=== PATIENT | male | born 1985 | race Caucasian/White ===

== ENCOUNTER 2021-03-07 17:52 | Emergency (ER) | payer OTHER, SELFPAY ==
--- NOTE | ~2021-03-07 | XR_ITS ---
XR chest 1V portable 03/07/2021 20:29 Indication: Cough and shortness of breath. Covid infection. Procedure: AP portable chest Comparison: No prior studies for comparison. Findings: Patchy bilateral airspace disease, compatible with pneumonia. No pleural effusion or pneumo thorax. No acute osseous abnormality. Impression: 1: Patchy bilateral pneumonia. Reviewed, dictated and finalized at location A. [facility] Impression: 1: Patchy bilateral pneumonia.
[2021-03-07 18:02] VITALS: BP 134/97; PULSE 108; RESP 19; TEMP 37.3; O2SAT 97
[2021-03-07 20:10] VITALS: BP 135/86; PULSE 105; RESP 20; TEMP 37.4; O2SAT 95
[2021-03-07 20:44] LABS: Basophils Percent Auto 0.2 % (0.2-1.2); Hematocrit 45.9 % (42.0-52.0); Hemoglobin 16.4 g/dL (14.0-18.0); Immature Granulocyte Absolute 0.08 K/mm3 (0.00-0.031); Immature Granulocyte Percent A 0.9 % (0-0.5); Lymphocytes Absolute Auto 1.61 K/mm3 (0.9-3.2); Lymphocytes Percent Auto 17.7 % (18.3-44.2); Mean Corpuscular HGB Conc 35.7 g/dl (32-36); Mean Corpuscular Hemoglobin 32.2 pg (26-34); Mean Platelet Volume 10.5 fl (7.4-10.4); Monocytes Absolute Auto 0.8 K/mm3 (0.1-0.6); Monocytes Percent Auto 8.9 % (2.6-8.5); Neutrophils Absolute Auto 6.6 K/mm3 (1.3-6.7); Neutrophils Percent Auto 72.3 % (45.5-73.1); Platelet Count Result 191 k/mm3 (150-375); Red Cell Distribution Width 11.4 % (11.5-14.5); White Blood Count 9.1 K/mm3 (4.5-10.0)
--- NOTE | 2021-03-07 20:57 | ED.GENADULT ---
HPI - General Adult General Chief complaint: Upper Respiratory Infection Stated complaint: Covid + 10 days ago. cough Time Seen by Provider: 03/07/21 20:21 History of Present Illness HPI narrative: 35-year-old male presented to the emergency department for evaluation of worsening Covid symptoms after testing positive greater than 10 days ago. Patient reports persistent cough and congestion. Patient states initially had body aches and felt pretty poor but then began to improve but patient states today he had worsening cough and congestion symptoms. Patient also describes an intense coughing fit after which he had increased chest tightness. Patient is a smoker. Patient denies any underlying lung disease, denies asthma and COPD Related Data Allergies Allergy/AdvReac Type Severity Reaction Status Date / Time No Known Allergies Allergy Verified 03/07/21 18:05 Review of Systems Review of Systems: CONSTITUTIONAL: Denies fever, chills, or sweats. EYES: Denies visual changes, redness, or discharge. ENT: Denies rhinorrhea, congestion, sore throat, or otalgia. CARDIOVASCULAR: Denies chest pain, palpitations, or edema. RESPIRATORY: Denies cough or dyspnea. GASTROINTESTINAL: Denies abdominal pain, nausea, vomiting, or diarrhea. GENITOURINARY: Denies dysuria or hematuria. SKIN: Denies rash or itching. MUSCULOSKELETAL: Denies back pain, joint pain, or myalgia. NEUROLOGIC: Denies headache, numbness, or weakness. PSYCHIATRIC: Denies anxiety or depression. Exam Narrative: APPEARANCE: Well appearing, no pain in distress, well-nourished. Head normocephalic atraumatic. EYES: PERRLA/EOMI, conjunctivae very clear. NOSE: Normal no drainage EARS:TMS clear Bennett Swain, with good light reflex. THROAT: Pharynx clear, no exudate. NECK: Supple. No adenopathy, no masses. RESPIRATORY: Airway patent, respirations nonlabored. Clear to auscultation bilaterally, no rales, rhonchi, wheezing. CARDIOVASCULAR: Regular rate and rhythm without murmurs rubs or gallops. ABDOMINAL: Soft, nontender, nondistended, no hepatosplenomegally MUSCULOSKELETAl: Moves all extremities. Strength/ROM intact, No edema, No calf tenderness. NEURO: Alert. Cranial nerves II through XII intact. Good gait. Good coordination SKIN:: Warm, dry. Normal Color PSYCHIATRIC: Normal affect/mood Course Vital Signs Vital signs: Vital Signs Temperature 99.2 F 03/07/21 18:02 Pulse Rate 108 H 03/07/21 18:02 Respiratory Rate 19 03/07/21 18:02 Blood Pressure 134/97 H 03/07/21 18:02 Pulse Oximetry 97 03/07/21 18:02 Temperature 99.4 F 03/07/21 20:10 Pulse Rate 100 03/07/21 21:19 Respiratory Rate 20 03/07/21 21:19 Blood Pressure 135/86 03/07/21 20:10 Pulse Oximetry 95 03/07/21 20:10 Medical Decision Making MDM Narrative Medical decision making narrative: Patient describes a possible bronchospasm where he had increased chest tightness after having a coughing fit. Patient states in the respirator and he feels like he is breathing easier than he was at home. Patient will be prescribed an albuterol inhaler and also Tessalon Perles to help with cough. Patient was educated on reasons to return to the emergency room. All questions and concerns were addressed. Vital Signs Vital Signs: Vital Signs Temperature 99.2 F 03/07/21 18:02 Pulse Rate 108 H 03/07/21 18:02 Respiratory Rate 19 03/07/21 18:02 Blood Pressure 134/97 H 03/07/21 18:02 Pulse Oximetry 97 03/07/21 18:02 Temperature 99.4 F 03/07/21 20:10 Pulse Rate 100 03/07/21 21:19 Respiratory Rate 20 03/07/21 21:19 Blood Pressure 135/86 03/07/21 20:10 Pulse Oximetry 95 03/07/21 20:10 Lab Data Lab results reviewed: Yes I reviewed the patient's lab results. Result diagrams: 03/07/21 20:39 Labs: Lab Results 03/07/21 Range/Units 20:39 WBC 9.1 (4.5-10.0) K/mm3 RBC 5.10 (4.6-6.20) M/mm3 Hgb 16.4 (14.0-18.0) g/dL Hct 45.9 (42.0-52.0) % MCV 90.0 (8
[2021-03-07] MEDS: ALBUTEROL SULFATE NEB 2.5 MG/0.5 ML INH 5 MG INHALATION (21:12)
[2021-03-07 21:19] VITALS: PULSE 100; RESP 20
[2021-03-07] MEDS: BENZONATATE 100 MG CAPSULE PO (21:30)
== END 2021-03-07 21:35 | disposition home or self-care (01) ==
PROVIDERS: Emergency Medicine; Emergency Provider Emergency Medicine
DX: U07.1 COVID-19 (principal); J12.82 Pneumonia due to coronavirus disease 2019; F17.200 Nicotine dependence, unspecified, uncomplicated
CPT/HCPCS: 36415; 71045; 85025; 94640; 99283; A9270

== ENCOUNTER 2024-01-02 12:58 | Outpatient (CLI) | payer OTHER, SELFPAY ==
[2024-01-02 21:01] LABS: Hemoglobin A1C 5.4 % (<5.7)
== END 2024-01-02 12:59 | disposition home or self-care (01) ==
LOC: ANHBWCLAB 12:59
PROVIDERS: PCP Nurse Practitioner Adult Health; Visit Provider Nurse Practitioner Adult Health
DX: E11.9 Type 2 diabetes mellitus without complications (principal)
CPT/HCPCS: 36415; 83036